=== PATIENT | male | born 1975 | race Caucasian/White ===

== ENCOUNTER 2019-11-10 16:48 | Emergency (ER) | payer BC ==
[~2019-11-10] VITALS: Ht 193 cm; Wt 86.4 kg
[2019-11-10] MEDS ORDERED: ACIPHEX20 MG PO (18:15)
[2019-11-10 18:50] VITALS: BP 129/79; PULSE 76; TEMP 98.2
[2019-11-10] MEDS ORDERED: CEPHALEXIN500 M1 PO ×2 (18:56→18:57)
== END 2019-11-10 19:00 | disposition home or self-care (01) ==
LOC: COL.ER 16:48
DX: S62.633A Displaced fracture of distal phalanx of left middle finger, initial encounter for closed fracture (principal); W31.89XA Contact with other specified machinery, initial encounter